=== PATIENT | female | born 1980 | race African-American/Black ===

== ENCOUNTER → 2018-03-18 | Outpatient (CLI) | payer BC | LOC: COL.RAD 08:45 | DX: N28.89 Other specified disorders of kidney and ureter (principal) ==

== ENCOUNTER → 2018-05-21 | Outpatient (CLI) | payer BC | LOC: COL.CARD 07:52 | DX: I10 Essential (primary) hypertension (principal) ==

== ENCOUNTER → 2021-08-06 | Outpatient (CLI) | payer BC | LOC: MC.RAD 10:52 | DX: Z12.31 Encounter for screening mammogram for malignant neoplasm of breast (principal) ==

== ENCOUNTER → 2021-08-12 | Outpatient (CLI) | payer BC | LOC: MC.RAD 08:47 | DX: N60.02 Solitary cyst of left breast (principal) ==

== ENCOUNTER → 2023-02-10 | Outpatient (CLI) | payer BC | LOC: MC.RAD 09:12 | DX: Z12.31 Encounter for screening mammogram for malignant neoplasm of breast (principal); N63.20 Unspecified lump in the left breast, unspecified quadrant; N64.89 Other specified disorders of breast ==